=== PATIENT | female | born 1995 | race African-American/Black ===

== ENCOUNTER → 2019-11-28 | Outpatient (CLI) | payer MEDICAID ==
--- NOTE | 2019-11-28 11:59 | RAD ---
Right shoulder AP scapular x-rays 3 views HISTORY: Shoulder pain. FINDINGS: No fracture. No dislocation. No arthritic change. No separation of the acromioclavicular joint evident. No lytic or sclerotic bone lesion evident. The soft tissues are unremarkable. IMPRESSION: Normal exam. Electronically signed by: Connor Lanier MD (11/28/2019 11:56 AM) [id number]
== END | disposition home or self-care (01) ==
LOC: DXRAD 10:33
PROVIDERS: ATTEND Physician Assistant Medical
DX: M25.511 Pain in right shoulder (principal)
CPT/HCPCS: 73030